=== PATIENT | male | born 1985 | race Two or more races ===

== ENCOUNTER 2018-03-30 09:00 | Emergency (ER) | payer MEDICAID ==
[~2018-03-30] VITALS: Ht 167.6 cm; Wt 65.8 kg
[2018-03-30 09:00] VITALS: BP 137/70
== END 2018-03-30 09:47 | disposition home or self-care (01) ==
LOC: ER 09:03
DX: L02.612 Cutaneous abscess of left foot (principal); L03.032 Cellulitis of left toe; Z98.890 Other specified postprocedural states
CPT/HCPCS: 10060; 99283; A4606; Z7610

== ENCOUNTER 2018-07-29 21:21 | Emergency (ER) | payer MEDICAID ==
[~2018-07-29] VITALS: Ht 157.5 cm; Wt 50.8 kg
[2018-07-29] MEDS ORDERED: IBUPROFEN 600 MG TABLET PO ONE ×2 (22:00→22:09)
[2018-07-29 23:09] VITALS: BP 135/88
== END 2018-07-29 23:11 | disposition home or self-care (01) ==
LOC: ER 21:21
DX: L03.031 Cellulitis of right toe (principal); J06.9 Acute upper respiratory infection, unspecified; R00.0 Tachycardia, unspecified; Z98.890 Other specified postprocedural states
CPT/HCPCS: 10060; 99283; A6403

== ENCOUNTER 2019-03-01 08:17 | Emergency (ER) | payer MEDICAID ==
[~2019-03-01] VITALS: Ht 170.2 cm; Wt 74.8 kg
--- NOTE | 2019-03-01 08:42 | NUR ---
Patient came in to the ER c/o puncture wound to right foot from nail 1 week ago. On room air, breathing evenly and unlabored. kept comfortable, will continue to monitor accordingly.
[2019-03-01 09:00] VITALS: BP 134/84
--- NOTE | 2019-03-01 09:01 | NUR ---
Patient discharged to home in stable condition. Written and verbal after care instructions given. Patient verbalizes understanding of instruction.
== END 2019-03-01 09:00 | disposition home or self-care (01) ==
LOC: ER 08:17
DX: L03.031 Cellulitis of right toe (principal); Z98.890 Other specified postprocedural states

== ENCOUNTER 2019-04-12 19:07 | Emergency (ER) | payer MEDICAID ==
[~2019-04-12] VITALS: Ht 170.2 cm; Wt 68.0 kg
--- NOTE | 2019-04-12 19:50 | NUR ---
PT AAOX4. AMBULAORY. C/O R ANKLE PAIN AND SWELLING S/P FALL 4 DAYS BANQUET SET UP PERSON.
[2019-04-12] MEDS ORDERED: HYDROCODONE/APAP 10/325MG 1 EA TABLET ONE (19:53)
[2019-04-12] MEDS ORDERED: ONDANSETRON 4 MG TAB.RAPDIS ONE (19:53)
[2019-04-12] MEDS ORDERED: ONDANSETRON 4 MG TAB.RAPDIS SL ONE (20:00)
[2019-04-12] MEDS ORDERED: HYDROCODONE/APAP 10/325MG 1 EA TABLET PO ONE (20:00)
--- NOTE | 2019-04-12 20:02 | NUR ---
XRAY AT BEDSIDE
--- NOTE | 2019-04-12 21:26 | NUR ---
EMT AT BEDSIDE
--- NOTE | 2019-04-12 22:21 | NUR ---
Patient discharged to home in stable condition. Written and verbal after care instructions given. Patient verbalizes understanding of instruction and RX. Ambulated with steady gait using crutches. Pt taught how to use crutches.
[2019-04-12 22:22] VITALS: BP 132/82
== END 2019-04-12 22:22 | disposition home or self-care (01) ==
LOC: ER 19:11
DX: S82.831A Other fracture of upper and lower end of right fibula, initial encounter for closed fracture (principal); Z98.890 Other specified postprocedural states; W01.0XXA Fall on same level from slipping, tripping and stumbling without subsequent striking against object, initial encounter; Y93.89 Activity, other specified; Y92.89 Other specified places as the place of occurrence of the external cause; Y99.8 Other external cause status
CPT/HCPCS: 29515; 73610; 73630; 99284; Q0162

== ENCOUNTER 2019-10-02 20:53 | Emergency (ER) | payer MEDICAID ==
[~2019-10-02] VITALS: Ht 165.1 cm; Wt 70.3 kg
[2019-10-02 21:01] VITALS: BP 154/113
--- NOTE | 2019-10-02 21:05 | NUR ---
PATIENT CAME TO ER BED 1 C/O LEFT MEDIAL KNEE PAIN SINCE ERLIER TODAY WHEN HE WENT HIKING. PATIENT STATES THAT HE JUMPED ON AN UNSTABLE ROCK AND JUMPED DOWN FROM IT. PATIENT DID NOT HEAR ANY POP OF THE KNEE FOLLOWING THE TWO EVENTS. PATIENT HAS FULL RANGE OF MOTION OF LEFT KNEE. NO ABNORMALITY NOTED. PATIENT IS AMBULATORY WITH A CANE. BREATHING EVENLY AND UNLABORED ON ROOM AIR.
--- NOTE | 2019-10-02 21:07 | NUR ---
LEANA VALE AT BEDSIDE FOR EVAL
[2019-10-02] MEDS ORDERED: NAPROXEN 250 MG TABLET ONE (21:13)
--- NOTE | 2019-10-02 21:23 | NUR ---
PATIENT PROVIDED CRUTCHES AND LEFT KNEE IMMOBILIZER
[2019-10-02] MEDS ORDERED: NAPROXEN 500 MG TABLET PO SCH (21:30)
--- NOTE | 2019-10-02 21:32 | NUR ---
Patient discharged to home in stable condition. Written and verbal after care instructions given. Patient verbalizes understanding of instruction.
== END 2019-10-02 21:33 | disposition home or self-care (01) ==
LOC: ER 20:53
DX: M25.562 Pain in left knee (principal); Z98.890 Other specified postprocedural states; W17.89XA Other fall from one level to another, initial encounter; Y93.01 Activity, walking, marching and hiking; Y92.89 Other specified places as the place of occurrence of the external cause; Y99.8 Other external cause status

== ENCOUNTER 2019-11-13 12:59 | Emergency (ER) | payer MEDICAID ==
[~2019-11-13] VITALS: Ht 165.1 cm; Wt 59.4 kg
[2019-11-13 13:05] VITALS: BP 150/97
== END 2019-11-13 13:47 | disposition home or self-care (01) ==
LOC: ER 13:03
DX: S91.101A Unspecified open wound of right great toe without damage to nail, initial encounter (principal); X58.XXXA Exposure to other specified factors, initial encounter; Y93.89 Activity, other specified; Y92.89 Other specified places as the place of occurrence of the external cause; Y99.8 Other external cause status

== ENCOUNTER 2020-01-12 18:07 | Emergency (ER) | payer MEDICAID ==
[~2020-01-12] VITALS: Ht 165.1 cm; Wt 61.2 kg
[2020-01-12 18:14] VITALS: BP 167/90
== END 2020-01-12 19:00 | disposition home or self-care (01) ==
LOC: ER 18:10
DX: S91.101A Unspecified open wound of right great toe without damage to nail, initial encounter (principal); L60.0 Ingrowing nail; Z98.890 Other specified postprocedural states; X58.XXXA Exposure to other specified factors, initial encounter; Y93.89 Activity, other specified; Y92.89 Other specified places as the place of occurrence of the external cause; Y99.8 Other external cause status

== ENCOUNTER 2020-05-30 20:23 | Emergency (ER) | payer MEDICAID ==
[~2020-05-30] VITALS: Ht 162.6 cm; Wt 69.9 kg
[2020-05-30] MEDS ORDERED: ACETAMINOPHEN ES 500 MG TABLET ONE (20:47)
[2020-05-30] MEDS ORDERED: ACETAMINOPHEN ES 500 MG TABLET PO ONE (21:00)
[2020-05-30] MEDS ORDERED: IV NS 0.9% 1,000 ML BAG IV ONE ×2 (21:00→22:00)
[2020-05-30] MEDS ORDERED: ONDANSETRON HCL/PF 4 MG/2 ML VIAL IVP ONE (21:00)
[2020-05-30 21:01] LABS: BASOPHILS # (AUTO) 0.1 /CMM (0.0-0.2); BASOPHILS % (AUTO) 0.4 % (0.0-2.0); EOSINOPHILS % (AUTO) 0.1 % (0.0-6.0); HEMATOCRIT 33 % (39-51); HEMOGLOBIN 11.2 g/dL (13.5-17.5); LYMPHOCYTES # (AUTO) 0.7 /CMM (0.8-4.8); LYMPHOCYTES % (AUTO) 3.3 % (20.0-44.0); MEAN CORPUSCULAR HGB CONC 34 g/dl (31.0-36.0); MEAN CORPUSCULAR VOLUME 81 fL (80-96); MONOCYTES # (AUTO) 1.4 /CMM (0.1-1.30); MONOCYTES % (AUTO) 6.9 % (2.0-12.0); NEUTROPHILS # (AUTO) 17.6 /CMM (1.8-8.9); NEUTROPHILS % (AUTO) 89.3 % (43.0-81.0); PLATELET COUNT (AUTO) 258 /CMM (150-450); RED BLOOD CELL COUNT(AUTO) 4.09 MIL/uL (4.5-6.0); WHITE BLOOD COUNT (AUTO) 19.7 K/uL (4.3-11.0)
--- NOTE | 2020-05-30 21:01 | NUR ---
BIBWIFE FROM HOME TO ER BED 6. AAOX4. NOT IN RESP DISTRESS, BREATHING EVEN AND UNLABORED. AMBULATORY. CAME IN FOR BODYACHE, FEVER, VOMMITING AND COUGH. PER PT, BODYACHE AND FEVER STARTED TODAY. VOMMITING HAS BEEN A WEEKS BUT WORST TODAY. ORAL TEMP WAS NOTED @ 100.3. HE HAVE DIABETIC FOOT ULCER ON HIS R GREAT TOE, NON DRAINING NOR BLEEDING. PT DENIES SOB, SATTING @ 98% ON RA. PROVIDER WAS AT THE BEDSIDE FOR EVAL. ORDERS RECEIVED, NOTED AND CARRIED OUT. IV LINE ESTABLISHED ON R AC 18G, BLOOD DRAWN AND GIVEN TO LPHLEB AT BEDSIDE. PT ON MONITOR
[2020-05-30 21:07] LABS: BILIRUBIN,URINE Negative (NEGATIVE); COLOR,URINE YELLOW (YELLOW); LEUKOCYTE ESTERASE ,URINE Negative (NEGATIVE); NITRITE, URINE Negative (NEGATIVE); PH,URINE 6.5 (5.0-8.0); PROTEIN,URINE >=300 mg/dl (NEGATIVE); UGLUCOSE 250 MG/DL mg/dL (NEGATIVE)
[2020-05-30 21:18] LABS: RBC,URINE 21-50 /HPF (0-2); WBC,URINE 0-2 /HPF (0-3)
[2020-05-30 21:18] LABS: ALBUMIN 3.2 g/dL (3.4-5.0); BILIRUBIN,DIRECT 0.2 mg/dL (0.0-0.2); CALCIUM, SERUM 8.5 mg/dL (8.5-10.1); CREATININE 1.3 mg/dL (0.6-1.3); POTASSIUM 4.2 mmol/L (3.5-5.1); TOTAL PROTEIN, SERUM 7.2 g/dL (6.4-8.2)
[2020-05-30 21:19] LABS: BACTERIA,URINE Rare /HPF (None Seen); SQUAMOUS EPITHELIAL CELL,UR 0-2 /HPF (None Seen)
[2020-05-30] MEDS ORDERED: ONDANSETRON HCL/PF 4 MG/2 ML VIAL ONE (21:36)
[2020-05-30] MEDS ORDERED: ACET-2605 PO (21:58)
[2020-05-30] MEDS ORDERED: ONDA4TAB5 PO (21:58)
[2020-05-30] MEDS ORDERED: AMOX-430 PO (21:58)
[2020-05-30] MEDS ORDERED: KETOROLAC TROMETHAMINE INJ 30 MG/ML VIAL IV ONE (22:00)
[2020-05-30] MEDS ORDERED: AMOX/CLAVULANATE 875 MG TABLET PO ONE (22:00)
[2020-05-30] MEDS ORDERED: AMOX/CLAVULANATE 875 MG TABLET ONE (22:03)
[2020-05-30] MEDS ORDERED: KETOROLAC TROMETHAMINE 15 MG/ML VIAL ONE (22:03)
--- NOTE | 2020-05-30 22:18 | NUR ---
maria l aware temp of 100.1. toradol 30mg iv given
--- NOTE | 2020-05-30 22:42 | NUR ---
Patient discharged to home in stable condition. Written and verbal after care instructions given. Patient verbalizes understanding of instruction.IV removed. Catheter intact and site benign. Pressure and 4x4 applied to site. No bleeding noted. Pt ambulatory with a steady gait. Pt was instructed to come back tomorrow for a blood draw
[2020-05-30 22:43] VITALS: BP 162/98
== END 2020-05-30 22:43 | disposition home or self-care (01) ==
LOC: ER 20:23
DX: J06.9 Acute upper respiratory infection, unspecified (principal); R50.9 Fever, unspecified; Z20.822 Contact with and (suspected) exposure to COVID-19; E11.65 Type 2 diabetes mellitus with hyperglycemia; E11.621 Type 2 diabetes mellitus with foot ulcer; L97.519 Non-pressure chronic ulcer of other part of right foot with unspecified severity; R03.0 Elevated blood-pressure reading, without diagnosis of hypertension; D64.9 Anemia, unspecified
CPT/HCPCS: 36415; 71045; 80048; 80076; 81001; 83605; 83690; 85025; 87040 ×2; 87077 ×2; 87186; 87426; 87804; 96361; 96374; 96375; 99284; C9803 ×2; J1885; J2405; J7030 ×2; U0003

== ENCOUNTER 2020-05-31 17:21 | Emergency (ER) | payer MEDICAID ==
[~2020-05-31] VITALS: Ht 162.6 cm; Wt 72.1 kg
[~2020-05-31 17:21] MED LIST: ACET-2605 PO; AMOX-430 PO; ONDA4TAB5 PO
[2020-05-31 17:36] VITALS: BP 133/82
[2020-05-31 17:59] LABS: BASOPHILS # (AUTO) 0.1 /CMM (0.0-0.2); BASOPHILS % (AUTO) 0.7 % (0.0-2.0); EOSINOPHILS % (AUTO) 0.9 % (0.0-6.0); HEMATOCRIT 33 % (39-51); HEMOGLOBIN 11.4 g/dL (13.5-17.5); LYMPHOCYTES # (AUTO) 1.1 /CMM (0.8-4.8); LYMPHOCYTES % (AUTO) 10.6 % (20.0-44.0); MEAN CORPUSCULAR HGB CONC 35 g/dl (31.0-36.0); MEAN CORPUSCULAR VOLUME 81 fL (80-96); MONOCYTES % (AUTO) 9.9 % (2.0-12.0); NEUTROPHILS # (AUTO) 7.7 /CMM (1.8-8.9); NEUTROPHILS % (AUTO) 77.9 % (43.0-81.0); PLATELET COUNT (AUTO) 224 /CMM (150-450); RED BLOOD CELL COUNT(AUTO) 4.07 MIL/uL (4.5-6.0)
[2020-05-31 18:14] LABS: CALCIUM, SERUM 7.9 mg/dL (8.5-10.1); CREATININE 1.1 mg/dL (0.6-1.3); POTASSIUM 4.4 mmol/L (3.5-5.1)
--- NOTE | 2020-05-31 18:27 | NUR ---
Patient discharged to home in stable condition. Written and verbal after care instructions given. Patient verbalizes understanding of instruction.
== END 2020-05-31 18:28 | disposition home or self-care (01) ==
LOC: ER 17:23
DX: J06.9 Acute upper respiratory infection, unspecified (principal); E11.9 Type 2 diabetes mellitus without complications; D64.9 Anemia, unspecified; I10 Essential (primary) hypertension; R11.2 Nausea with vomiting, unspecified; F10.10 Alcohol abuse, uncomplicated; Y90.9 Presence of alcohol in blood, level not specified; Z98.890 Other specified postprocedural states; Z79.899 Other long term (current) drug therapy
CPT/HCPCS: 36415; 80048-TC; 85025-TC

== ENCOUNTER 2021-01-17 08:56 | Emergency (ER) | payer MEDICAID ==
[~2021-01-17] VITALS: Ht 162.6 cm; Wt 70.3 kg
--- NOTE | 2021-01-17 09:18 | NUR ---
PT CAME TO ER C/O BLURRED VISION IN THE OUTER CORNER OF THE R EYE SINCE LAST NIGHT. DENIES TRAUMA TO EYE, HEADACHE, N/V, FEVER. REPORTS THAT SAW COLORED DOTS IN VISUAL FIELD WHEN BENT DOWN TWICE. AAOX4, AMBULATORY, NO FOREIGN OBJECT, REDNESS, OR SWELLING SEEN IN EYE.
[2021-01-17] MEDS ORDERED: FLUORESCEIN SODIUM OPHTH 1 EA STRIP ONE (09:30)
[2021-01-17] MEDS ORDERED: TONO PEN in ED SUPPLY ONICELL 1 EA MC ONE (09:30)
[2021-01-17] MEDS ORDERED: FLUORESCEIN SODIUM OPHTH 1 EA STRIP OP ONE (09:30)
--- NOTE | 2021-01-17 10:41 | NUR ---
Patient discharged to home in stable condition. Written and verbal after care instructions given. Patient verbalizes understanding of instruction.
[2021-01-17 10:46] VITALS: BP 148/102
== END 2021-01-17 10:40 | disposition left against medical advice (07) ==
LOC: ER 09:04
DX: H33.21 Serous retinal detachment, right eye (principal); E11.9 Type 2 diabetes mellitus without complications; Z98.890 Other specified postprocedural states

== ENCOUNTER 2021-05-20 08:57 | Emergency (ER) | payer MEDICAID ==
[~2021-05-20] VITALS: Ht 157.5 cm; Wt 70.8 kg
[2021-05-20 09:04] VITALS: BP 166/103
--- NOTE | 2021-05-20 09:10 | NUR ---
HIT WITH WIT "WOOD " AT WORK 4 DAYS AGO, C/O LEFT SIDE OF FOREHEAD SWOLLEN. WAITNG FOR MD SARAH.
== END 2021-05-20 09:29 | disposition home or self-care (01) ==
LOC: ER 09:01
DX: S00.83XA Contusion of other part of head, initial encounter (principal); E11.9 Type 2 diabetes mellitus without complications; Z87.2 Personal history of diseases of the skin and subcutaneous tissue; Z86.31 Personal history of diabetic foot ulcer; Z79.1 Long term (current) use of non-steroidal anti-inflammatories (NSAID); Z79.899 Other long term (current) drug therapy; W22.8XXA Striking against or struck by other objects, initial encounter; Y93.89 Activity, other specified; Y92.89 Other specified places as the place of occurrence of the external cause; Y99.8 Other external cause status

== ENCOUNTER 2021-05-27 18:46 | Inpatient (IN) | payer MEDICAID ==
[~2021-05-27] VITALS: Ht 160 cm; Wt 72.1 kg
--- NOTE | 2021-05-27 21:09 | NUR ---
XRAY AT BEDSIDE.
--- NOTE | 2021-05-27 21:09 | NUR ---
LAB AT BEDSIDE FOR BLOOD DRAW.
[2021-05-27] MEDS ORDERED: CEPHALEXIN MONOHYDRATE 500 MG CAPSULE PO ONE ×2 (21:15→21:30)
[2021-05-27] MEDS ORDERED: SULFAMETH/TRIMETH 800/160 MG 1 UDTAB TABLET ONE (21:15)
[2021-05-27] MEDS ORDERED: SULFAMETH/TRIMETH 800/160 MG 1 UDTAB TABLET PO ONE (21:30)
[2021-05-27 21:43] LABS: BASOPHILS # (AUTO) 0.1 K/uL (0.0-0.2); BASOPHILS % (AUTO) 0.5 % (0.0-2.0); EOSINOPHILS % (AUTO) 1.8 % (0.0-6.0); HEMATOCRIT 29 % (39-51); HEMOGLOBIN 9.7 g/dL (13.5-17.5); LYMPHOCYTES # (AUTO) 1.7 K/uL (0.8-4.8); LYMPHOCYTES % (AUTO) 12.2 % (20.0-44.0); MEAN CORPUSCULAR HGB CONC 34 g/dl (31.0-36.0); MEAN CORPUSCULAR VOLUME 81 fL (80-96); MONOCYTES % (AUTO) 7.6 % (2.0-12.0); NEUTROPHILS # (AUTO) 10.7 K/uL (1.8-8.9); NEUTROPHILS % (AUTO) 77.9 % (43.0-81.0); PLATELET COUNT (AUTO) 365 K/uL (150-450); RED BLOOD CELL COUNT(AUTO) 3.54 MIL/uL (4.5-6.0); WHITE BLOOD COUNT (AUTO) 13.7 K/uL (4.3-11.0)
[2021-05-27 22:00] LABS: CALCIUM, SERUM 8.6 mg/dL (8.5-10.1); CREATININE 1.8 mg/dL (0.6-1.3); POTASSIUM 3.9 mmol/L (3.5-5.1)
--- NOTE | 2021-05-27 22:30 | NUR ---
ASSUMED PT CARE, PT BIBS TO ER BED 9 FROM CHAIR 1. AAOX4. NOT IN RESP DISTRESS. AMBULATORY. CAME IN FOR R FOOT 3RD DIGIT. PAIN AND SWELLING X 1.5 WEEKS. MD ORDERS RECEIVED.
[2021-05-27] MEDS ORDERED: VANCOMYCIN 1 GM VIAL ONE (22:53)
[2021-05-27] MEDS ORDERED: PIPERACILLIN /TAZOBACTAM 3.375 G VIAL IV ONE (22:53)
[2021-05-27] MEDS ORDERED: IV NS 0.9% 1,000 ML BAG IV ONE (23:00)
[2021-05-27] MEDS ORDERED: CEFAZOLIN 2 GM in IV D5W 100 ML IV ONE (23:00)
[2021-05-27] MEDS ORDERED: VANCOMYCIN 1 GM in IV D5W 250 ML IV ONE (23:00)
[2021-05-27] MEDS ORDERED: PIPERACILLIN /TAZOBACTAM 3.375 G in IV D5W 50 ML IV ONE (23:00)
[2021-05-27] MEDS ORDERED: DEXTROSE 50%-WATER 50 ML DISP.SYRIN IV PRN (23:30)
[2021-05-27] MEDS ORDERED: HYDROCODONE/APAP 5/325MG TABLET PO PRN (23:30)
[2021-05-27] MEDS ORDERED: ACETAMINOPHEN 325 MG TABLET PO PRN (23:30)
--- NOTE | 2021-05-27 23:47 | NUR ---
COVID SWAB DONE AND SENT TO LAB
--- NOTE | 2021-05-27 23:57 | NUR ---
FOLLOWED UP WITH LAB REGARDING COVID SWAB. STILL NOT PICKED UP BY PHLEB. SPECIMENT COLLECTED ALREADY.
--- NOTE | 2021-05-28 01:51 | NUR ---
called to report, nurse on break
--- NOTE | 2021-05-28 02:01 | NUR ---
report given to [facility] for kathy
--- NOTE | 2021-05-28 02:16 | NUR ---
pt transported to unit on gurney with emt at bedside on stable condition
[2021-05-28] MEDS: ONDANSETRON HCL/PF 4 MG/2 ML VIAL IVP PRN (02:48)
[2021-05-28] MEDS: IV NS 0.9% 1,000 ML IV PRN ×2 (03:05→21:33)
--- NOTE | 2021-05-28 03:27 | NUR ---
MS ROOM COOLER INSTALLER NOTE PATENT BROUGHT IN UNIT @0211 AM VIA [facility] ACCOMPANIED BY 2 ER PERSONNEL. PATIENT IS A/OX4 AND IS STEADY WITH HIS GAIT. NO S/S OF APPARENT DISTRESS O ROOM AIR, AND BREATHING IS SYMMETRICAL AND UNLABORED. DENIES PAIN BUT C/O NAUSEA, X1 EMESIS WHICH HAS BEEN MANAGED WITH ZOFRAN. R. FA #18 G RUNNING NS @75CC/HR AT THIS TIME. PATIENT THINGS CHECKED AND INVENTORIED. NEW ID BAND ON PATIENT. PATIENT EDUCATED WITH THE USE OF CALL LIGHT AND ORIENTED TO THE UNIT. PATIENT WISHES TO BE FULL CODE AT THIS TIME. UP TO DATE WITH HIS VACCINATIONS-- FLU AND COVID. PATIENT DENIES SMOKING AND DRINKING ALCOHOL, SAYING HE QUIT YEARS AGO. SAFETY IN PLACE. V/S FOLLOWS:139/85, HR-90, RR-20, T-98.1, SATURATION 99% ON ROOM AIR AND WEIGHS 159 LBS. NEEDS ATTENDED AT THE MOMENT. WILL CONTINUE WITH PLAN OF CARE FOR PATIENT AND FOLLOW THROUGH DOCTOR'S ORDER.
[2021-05-28] MEDS ORDERED: ZOSYN IVPB 3.375 G in IV D5W 50ml IV SCH (05:00)
[2021-05-28] MEDS ORDERED: PIPERACILLIN /TAZOBACTAM 3.375 G VIAL IV ONE (05:25)
[2021-05-28] MEDS: BLOOD SUGAR DIAGNOSTIC 1 EACH STRIP IN SCH ×4 (06:45→21:45)
[2021-05-28] MEDS: INSULIN REGULAR, HUMAN 100 UNIT/ML 3 ML VIAL SQ PRN (06:45)
--- NOTE | 2021-05-28 06:46 | NUR ---
MS RN NOTE BLOOD SUGAR 97. NO COVERAGE NEEDED.
--- NOTE | 2021-05-28 06:53 | NUR ---
MS RN CLOSING PATIENT IN BED, WITH EYES CLOSED EASY TO AROUSE. NO S/S OF APPARENT DISTRESS IN ROOM AIR. DENIES ANY PAIN AND NAUSEA RELIEVED PER PATIENT AND GETS BACK WHEN HE AMBULATES. ALL NEEDS ATTENDED. ALL SCHEDULED MEDICATION ADMINISTERED. SAFETY IN PLACE. IV NS RUNNING @75 ML/HR. WILL ENDORSE TO MORNING RN FOR CONTINUITY OF CARE.
--- NOTE | 2021-05-28 07:17 | NUR ---
WOUND CARE CONSULT: PT PRESENTS WITH NAIL AVULSION, DRY WOUNDS TO RT FOOT/TOES AND DISCOLORATION, PRESENT ON ADMISSION. DR LEIJA NOTIFIED OF DPM CONSULT. IN AGREEMENT WITH PLAN OF CARE. CURRENT KAUSHIK SCORE IS 21.
[2021-05-28 07:30] LABS: BASOPHILS # (AUTO) 0.1 K/uL (0.0-0.2); BASOPHILS % (AUTO) 0.8 % (0.0-2.0); EOSINOPHILS % (AUTO) 2.1 % (0.0-6.0); HEMATOCRIT 26 % (39-51); LYMPHOCYTES # (AUTO) 1.6 K/uL (0.8-4.8); LYMPHOCYTES % (AUTO) 15.3 % (20.0-44.0); MEAN CORPUSCULAR HGB CONC 34 g/dl (31.0-36.0); MEAN CORPUSCULAR VOLUME 80 fL (80-96); MONOCYTES # (AUTO) 0.8 K/uL (0.1-1.30); MONOCYTES % (AUTO) 7.7 % (2.0-12.0); NEUTROPHILS # (AUTO) 7.9 K/uL (1.8-8.9); NEUTROPHILS % (AUTO) 74.1 % (43.0-81.0); PLATELET COUNT (AUTO) 329 K/uL (150-450); RED BLOOD CELL COUNT(AUTO) 3.26 MIL/uL (4.5-6.0); WHITE BLOOD COUNT (AUTO) 10.7 K/uL (4.3-11.0)
--- NOTE | 2021-05-28 07:30 | NUR ---
MS RN OPENING NOTES RECEIVED PATIENT ON BED, AWAKE AND A/O X4, TAJIK SPEAKING. ON O2 AT 2LPM VIA NASAL CANNULA TOLERATING WELL. NO SOB NOTED. NOT IN DISTRESS. WITH NO COMPLAINTS OF PAIN OR DISCOMFORT AT THIS TIME. WITH IV ACCESS AT LEFT FOREARM G18 WITH IVF NS AT 75ML/HR INFUSING WELL. SAFETY MEASURES IN PLACED. CALL LIGHT WITHIN REACH. BED ON LOWEST LOCKED POSITION, SIDE RAILS UP X2. WILL CONTINUE TO MONITOR.
[2021-05-28 08:12] VITALS: BP 148/89
[2021-05-28 08:51] LABS: CALCIUM, SERUM 8.2 mg/dL (8.5-10.1); CREATININE 1.6 mg/dL (0.6-1.3); MAGNESIUM 2.1 mg/dL (1.8-2.4); PHOSPHORUS 3.9 mg/dL (2.5-4.9); POTASSIUM 4.2 mmol/L (3.5-5.1)
[2021-05-28] MEDS: HEPARIN SODIUM, PORCINE 5000 UNITS/1 ML VIAL SQ SCH ×2 (09:20→21:34)
[2021-05-28] MEDS ORDERED: [UNRECOGNIZED DRUG - REMARK] PO (09:40)
[2021-05-28] MEDS ORDERED: METF-440 PO (09:40)
--- NOTE | 2021-05-28 12:00 | NUR ---
RN NOTE BLOOD SUGAR CHECK WAS 135. PATIENT REFUSED INSULIN COVERAGE.
[2021-05-28] MEDS: ZOSYN IVPB 3.375 G in IV D5W 50ml IV SCH ×3 (12:11→23:27)
[2021-05-28] MEDS: VANCOMYCIN 1 GM in IV D5W 250ml IV SCH (13:18)
[2021-05-28 16:10] VITALS: BP 168/99
--- NOTE | 2021-05-28 18:48 | NUR ---
MS RN CLOSING NOTES PATIENT ON BED, AWAKE AND A/O X4. ON ROOM AIR TOLERATING WELL. NO SOB NOTED. NOT IN DISTRESS. WITH NO COMPLAINTS OF PAIN OR DISCOMFORT AT THIS TIME. WITH IV ACCESS AT LEFT FOREARM G20 WITH IVF NS AT 75ML/HR INFUSING WELL. DUE MEDS GIVEN.SAFETY MEASURES IN PLACED. CALL LIGHT WITHIN REACH. BED ON LOWEST LOCKED POSITION, SIDE RAILS UP X2. WILL ENDORSE TO NEXT SHIFT FOR BETH.
--- NOTE | 2021-05-28 19:15 | NUR ---
MS RN OPENING NOTES PATIENT ON BED, AWAKE AND A/O X4. ON ROOM AIR TOLERATING WELL. NO SOB NOTED. NOT IN DISTRESS. WITH NO COMPLAINTS OF PAIN OR DISCOMFORT AT THIS TIME. WITH IV ACCESS AT LEFT FOREARM G20 WITH IVF NS AT 75ML/HR INFUSING WELL ALL NEEDS MET AT THIS TIME.SAFETY MEASURES IN PLACED. CALL LIGHT WITHIN REACH. BED ON LOWEST LOCKED POSITION, SIDE RAILS UP X2. WILL CONTINUE TO MONITOR.
[2021-05-28 20:00] VITALS: BP 151/88
--- NOTE | 2021-05-28 21:26 | NUR ---
MS RN NOTES TRANSFER OF CARE TO MARY DOTSON.
--- NOTE | 2021-05-28 22:26 | NUR ---
Received BETH report from MARY Machuca. Patient is awake, alert and in no signs of distress. Able to make needs known. NS running at 75ml/hr IV flushed and patent.
[2021-05-29] MEDS: VANCOMYCIN 1 GM in IV D5W 250ml IV SCH (01:00)
[2021-05-29] MEDS: ZOSYN IVPB 3.375 G in IV D5W 50ml IV SCH (05:26)
--- NOTE | 2021-05-29 06:37 | NUR ---
Patient has been stable overnight. alert and oriented. Able to make needs known. Tolerating IV ABX well. No s/s of hypo or hyperglycemia noted. MRI foot did come back as compatible with osteomyelitis of 3rd toe. ID is following, will endorse to oncoming nurse as well. Already on vanco and zosyn routine at this time. RFA #18G intact and patent. Currently resting in bed though easy to wake. No signs of distress.
[2021-05-29] MEDS: BLOOD SUGAR DIAGNOSTIC 1 EACH STRIP IN SCH ×4 (06:44→22:06)
[2021-05-29 06:50] LABS: BASOPHILS # (AUTO) 0.1 K/uL (0.0-0.2); BASOPHILS % (AUTO) 1.1 % (0.0-2.0); EOSINOPHILS % (AUTO) 3.7 % (0.0-6.0); HEMATOCRIT 27 % (39-51); HEMOGLOBIN 9.3 g/dL (13.5-17.5); LYMPHOCYTES # (AUTO) 1.5 K/uL (0.8-4.8); LYMPHOCYTES % (AUTO) 22.8 % (20.0-44.0); MEAN CORPUSCULAR HGB CONC 35 g/dl (31.0-36.0); MEAN CORPUSCULAR VOLUME 80 fL (80-96); MONOCYTES # (AUTO) 0.5 K/uL (0.1-1.30); MONOCYTES % (AUTO) 8.1 % (2.0-12.0); NEUTROPHILS # (AUTO) 4.3 K/uL (1.8-8.9); NEUTROPHILS % (AUTO) 64.3 % (43.0-81.0); PLATELET COUNT (AUTO) 329 K/uL (150-450); RED BLOOD CELL COUNT(AUTO) 3.37 MIL/uL (4.5-6.0); WHITE BLOOD COUNT (AUTO) 6.7 K/uL (4.3-11.0)
[2021-05-29 07:06] LABS: CALCIUM, SERUM 8.4 mg/dL (8.5-10.1); CREATININE 1.6 mg/dL (0.6-1.3); MAGNESIUM 2.4 mg/dL (1.8-2.4); PHOSPHORUS 3.9 mg/dL (2.5-4.9); POTASSIUM 4.1 mmol/L (3.5-5.1)
--- NOTE | 2021-05-29 07:30 | NUR ---
MS RN OPENING NOTES RECEIVED PATIENT AWAKE ON BED, PATIENT IS AAO X 4. ROOM AIR TOLERATING WELL. NO S/S OF SOB NOTED, NOT IN DISTRESS. NO PAIN AND DISCOMFORT AT THIS TIME. WITH IV ACCESS: RIGHT FORE ARM, 18G WITH NS @ 75 ML/HR: INFUSING WELL. SAFETY MEASURES IN PLACE, BED LOWEST LOCK IN POSITION, SIDE RAILS UP BY 2. CALL LIGHT WITH IN REACH. WILL CONTINUE TO MONITOR.
[2021-05-29 08:00] VITALS: BP 152/89
[2021-05-29] MEDS: HEPARIN SODIUM, PORCINE 5000 UNITS/1 ML VIAL SQ SCH ×2 (08:22→21:57)
[2021-05-29] MEDS ORDERED: BENA10TA74 PO (11:47)
[2021-05-29] MEDS ORDERED: GLIP5TAB13 PO (11:47)
[2021-05-29] MEDS: CEFTRIAXONE 1 G in IV D5W 50 ML IV SCH (13:21)
[2021-05-29 16:04] VITALS: BP 133/86
[2021-05-29] MEDS: BENAZEPRIL HCL 10 MG TABLET PO SCH (16:47)
[2021-05-29] MEDS: IV NS 0.9% 1,000 ML IV PRN (17:25)
[2021-05-29 20:00] VITALS: BP 147/90
--- NOTE | 2021-05-29 21:40 | NUR ---
called lab about vanco trough. Steel Estimator just now showed up to draw 2000 vanco trough. Will administer if results come back <20
[2021-05-29] MEDS: VANCOMYCIN 0.75 GM in IV D5W 250 ML IV SCH (22:53)
--- NOTE | 2021-05-29 22:53 | NUR ---
vanco trough just came back at 14 2100 dose given now
[2021-05-30] MEDS: IV NS 0.9% 1,000 ML IV PRN (06:10)
--- NOTE | 2021-05-30 06:19 | NUR ---
Patient is A&Ox4. Denies pain at this time. Dressing to R foot c/d/i. RFA #18G IV intact and patent NS running at 75cc/hr. Patient is leaning toward not doing an amputation but needs more time to think. If decided against will pass on to next RN to cancel for thursday. No overnight events, tolerating IV ABX well. No s/s of hypo or hyperglycemia. Currently wake and resting in bed with no signs of distress.
[2021-05-30] MEDS: BLOOD SUGAR DIAGNOSTIC 1 EACH STRIP IN SCH ×4 (06:32→21:51)
[2021-05-30 06:40] LABS: BASOPHILS # (AUTO) 0.1 K/uL (0.0-0.2); BASOPHILS % (AUTO) 1.2 % (0.0-2.0); EOSINOPHILS % (AUTO) 3.6 % (0.0-6.0); HEMATOCRIT 27 % (39-51); HEMOGLOBIN 9.3 g/dL (13.5-17.5); LYMPHOCYTES % (AUTO) 28.8 % (20.0-44.0); MEAN CORPUSCULAR HGB CONC 35 g/dl (31.0-36.0); MEAN CORPUSCULAR VOLUME 80 fL (80-96); MONOCYTES # (AUTO) 0.6 K/uL (0.1-1.30); MONOCYTES % (AUTO) 9.3 % (2.0-12.0); NEUTROPHILS % (AUTO) 57.1 % (43.0-81.0); PLATELET COUNT (AUTO) 360 K/uL (150-450); RED BLOOD CELL COUNT(AUTO) 3.34 MIL/uL (4.5-6.0)
[2021-05-30 06:44] LABS: CALCIUM, SERUM 8.4 mg/dL (8.5-10.1); CREATININE 1.5 mg/dL (0.6-1.3); PHOSPHORUS 4.4 mg/dL (2.5-4.9); POTASSIUM 4.2 mmol/L (3.5-5.1)
--- NOTE | 2021-05-30 07:35 | NUR ---
RN NOTES A/O X4, VERBALLY RESPONSIVE AND ABLE TO MAKE NEEDS KNOWN. NO COMPLAINT OF PAIN AT THIS TIME. IVF CONTINUOUS. SAFETY MEASURES IN PLACE. WILL CONTINUE TO MONITOR.
[2021-05-30 08:00] VITALS: BP 183/98
[2021-05-30] MEDS: BENAZEPRIL HCL 10 MG TABLET PO SCH ×2 (08:42→16:55)
[2021-05-30] MEDS: glipiZIDE 5 MG TABLET PO SCH (08:42)
[2021-05-30] MEDS: VANCOMYCIN 0.75 GM in IV D5W 250 ML IV SCH (08:43)
[2021-05-30] MEDS: HEPARIN SODIUM, PORCINE 5000 UNITS/1 ML VIAL SQ SCH ×2 (08:47→21:00)
--- NOTE | 2021-05-30 10:06 | NUR ---
RN NOTES PATIENT SEEN BY CAROL DUMONT NP; MADE AWARE OF PLAN OF CARE.
--- NOTE | 2021-05-30 12:20 | NUR ---
RN NOTES DR. LEIJA, SHAKE FEEDER, SEEN PATIENT AT BEDSIDE; AGREED FOR PROCEDURE AMPUTATION OF 3RD DIGIT.
[2021-05-30] MEDS: CEFTRIAXONE 1 G in IV D5W 50 ML IV SCH (13:23)
--- NOTE | 2021-05-30 13:57 | NUR ---
RN NOTES CONSENT FORM SIGNED BY PATIENT AND PLACED IN CHART.
--- NOTE | 2021-05-30 18:19 | NUR ---
RN NOTES PATIENT NPO POST MIDNIGHT FOR SCHEDULED SURGERY FOR TOMORROW. ABLE TO AMBULATE W/ MIN ASSIST TO BATHROOM. IVF PAUSED AT THIS TIME PATIENT IS AMBULATORY AND EATS/DRINKS WELL. NO COMPLAINT OF NAUSEA/VOMITING.
--- NOTE | 2021-05-30 19:30 | NUR ---
RN OPENING NOTE PATIENT IN BED, WITH AT BEDSIDE. PATIENT IS ABLE TO MAKE NEEDS KNOWN, A/O X 4. PATIENT IS CURRENTLY ON RA, TOLERATING WELL. PATIENT HAS A RFA 18 G PATENT AND INTACT, IV FLUID OFF AT THIS TIME PER PATIENT REQUEST. PATIENT TO BE NPO AFTER MIDNIGHT FOR SX. DRESSING PRESENT ON THE R FOOT, WILL REINFORCE. MILD BLEEDING NOTED. PATIENT NOT IN ANY APPARENT DISTRESS. SAFETY MEASURES IN PLACE: BED LOCKED AND IN LOWEST POSITION, CALL LIGHT WITHIN REACH, SIDE RAILS UP. WILL MONITOR PATIENT CLOSELY.
[2021-05-30 20:00] VITALS: BP 139/85
[2021-05-30] MEDS: INSULIN REGULAR, HUMAN 100 UNIT/ML 3 ML VIAL SQ PRN (21:51)
--- NOTE | 2021-05-30 21:51 | NUR ---
RN NOTE HEPRIN NON ADMINISTERED D/T SX IN AM. INSULIN NON ADMIN, BS 94 MG/DL. SNACKS AND JUICE GIVEN. PATIENT TO BE NPO AFTER MN.
--- NOTE | 2021-05-31 04:30 | NUR ---
RN NOTE PATIENT REPORTS FEELING NAUSEOUS, OFFERED ANTIEMETIC MEDICINE BUT REFUSES. EMESIS BAG PROVIDED. PATIENT NPO AT THIS TIME
--- NOTE | 2021-05-31 06:30 | NUR ---
RN CLOSING NOTE PATIENT IN BED, AWAKE. PATIENT IS ABLE TO MAKE NEEDS KNOWN, A/O X 4. PATIENT IS CURRENTLY ON RA, TOLERATING WELL. PATIENT HAS A RFA 18 G, INFILTRATED. WILL INSERT NEW IV ACCESS. DRESSING ON THE R FOOT C/D/I. NPO STATUS MAINTAINED FOR R THIRD TOE AMPUTATION WITH DR. MURPHY. PATIENT NOT IN ANY APPARENT DISTRESS. NO PAIN VERBALIZED BY PATIENT AT THIS TIME. SAFETY MEASURES IN PLACE: BED LOCKED AND IN LOWEST POSITION, CALL LIGHT WITHIN REACH, SIDE RAILS UP. WILL MONITOR PATIENT CLOSELY. Addendum: 05/31/21 at 0633 by GAYATRI WADE RN BS 119 NO COVERAGE GIVEN.
[2021-05-31] MEDS: BLOOD SUGAR DIAGNOSTIC 1 EACH STRIP IN SCH ×4 (06:34→21:15)
[2021-05-31] MEDS: INSULIN REGULAR, HUMAN 100 UNIT/ML 3 ML VIAL SQ PRN ×2 (06:34→21:16)
[2021-05-31] MEDS: ONDANSETRON HCL/PF 4 MG/2 ML VIAL IVP PRN ×2 (06:57→12:17)
--- NOTE | 2021-05-31 07:04 | NUR ---
NEW IV ACCESS INSERTED. LAC 18 G IV ACCESS, PATENT AND INTACT. ICE PACK APPLIED ON INFILTRATED SITE AND ELEVATED. Addendum: 05/31/21 at 0705 by GAYATRI WADE RN ZOFRAN GIVEN D/T PATIENT HAVING NAUSEA AND EMESIS
[2021-05-31 07:06] LABS: BASOPHILS # (AUTO) 0.1 K/uL (0.0-0.2); BASOPHILS % (AUTO) 1.2 % (0.0-2.0); EOSINOPHILS % (AUTO) 3.2 % (0.0-6.0); HEMATOCRIT 28 % (39-51); HEMOGLOBIN 9.8 g/dL (13.5-17.5); LYMPHOCYTES # (AUTO) 1.5 K/uL (0.8-4.8); MEAN CORPUSCULAR HGB CONC 35 g/dl (31.0-36.0); MEAN CORPUSCULAR VOLUME 80 fL (80-96); MONOCYTES # (AUTO) 0.6 K/uL (0.1-1.30); MONOCYTES % (AUTO) 6.6 % (2.0-12.0); NEUTROPHILS # (AUTO) 6.2 K/uL (1.8-8.9); PLATELET COUNT (AUTO) 396 K/uL (150-450); RED BLOOD CELL COUNT(AUTO) 3.53 MIL/uL (4.5-6.0); WHITE BLOOD COUNT (AUTO) 8.6 K/uL (4.3-11.0)
[2021-05-31 07:12] LABS: CALCIUM, SERUM 8.7 mg/dL (8.5-10.1); CREATININE 1.4 mg/dL (0.6-1.3); MAGNESIUM 2.4 mg/dL (1.8-2.4); PHOSPHORUS 4.5 mg/dL (2.5-4.9); POTASSIUM 4.6 mmol/L (3.5-5.1)
--- NOTE | 2021-05-31 07:46 | NUR ---
RN OPENING NOTES Patient seen comfortably lying in bed, breathing even and unlabored, no SOB, no apparent distress noted, denies any pain or discomfort at this time, no grimacing. Call light left within reach, safety precautions in place, brakes locked, side rails up X 2, will monitor closely for any changes.
[2021-05-31 09:03] LABS: BILIRUBIN,URINE NEGATIVE (NEGATIVE); COLOR,URINE YELLOW (YELLOW); LEUKOCYTE ESTERASE ,URINE NEGATIVE (NEGATIVE); NITRITE, URINE NEGATIVE (NEGATIVE); PROTEIN,URINE >=300 mg/dl (NEGATIVE); UGLUCOSE NEGATIVE (NEGATIVE); UROBILINOGEN,URINE 0.2 EU/dL (0.2)
[2021-05-31] MEDS ORDERED: LIDOCAINE 1% INJ 50 ML MDV IJ ONE (09:04)
[2021-05-31] MEDS ORDERED: BUPIVACAINE 0.5 % PF 150 MG/30 ML VIAL ONE (09:04)
[2021-05-31] MEDS ORDERED: ANESTHESIA TRAY IN PYXIS 1 EA TRAY MC ONE (09:04)
[2021-05-31] MEDS ORDERED: POLYMYXIN B SULFATE 0 UNITS ONE (09:04)
--- NOTE | 2021-05-31 09:30 | NUR ---
Patient left unit for procedure around 9:30am, stable condition, no apparent distress noted, remained NPO post midnight, no hypo/hyperglycemia noted, no change in level of consciousness, no tremors. Consents (signed by patient) and checklist filed in patient's chart. Patient not wearing any jewelry at this time.
[2021-05-31 09:43] LABS: BACTERIA,URINE None seen /HPF (None Seen); SQUAMOUS EPITHELIAL CELL,UR Rare /HPF (None Seen)
[2021-05-31] MEDS ORDERED: LABETALOL HCL IV 100MG VIAL ONE (11:03)
[2021-05-31] MEDS ORDERED: hydrALAZINE HCL IV 20 MG VIAL ONE (11:21)
--- NOTE | 2021-05-31 11:58 | NUR ---
Patient came back to unit form procedure (S/P right toe amputation), stable condition, no apparent distress noted, right foot covered with dry dressing wrapped in murali bandage, no visible signs and symptoms of bleeding, no drainage, no unusual odor noted, no s/s of circulation impairment noted at this time, skin warm to touch, no pallor or cyanosis noted, pulse present during shift, no swelling noted at this time. Orders noted and carried out by PACU nurse. Reminded patient to keep right lower extremity elevated, and to keep surgical shoe on and to inform nurse for any concerns, verbalized understanding and gratitude, call light left within reach.
[2021-05-31] MEDS: CEFTRIAXONE 1 G in IV D5W 50 ML IV SCH (12:17)
[2021-05-31] MEDS: glipiZIDE 5 MG TABLET PO SCH (12:18)
[2021-05-31] MEDS: HEPARIN SODIUM, PORCINE 5000 UNITS/1 ML VIAL SQ SCH ×2 (12:22→21:03)
[2021-05-31] MEDS: BENAZEPRIL HCL 10 MG TABLET PO SCH ×2 (12:23→16:07)
[2021-05-31] MEDS: IV NS 0.9% 1,000 ML IV PRN (16:22)
--- NOTE | 2021-05-31 18:24 | NUR ---
RN CLOSING NOTES Patient in bed, no apparent distress noted, no shortness of breath, breathing even and unlabored, remained afebrile, denies any pain or discomfort, no grimacing. All due medications given per MD order, tolerating well. No s/s of hypo or hyperglycemia, no tremors, no change in level of consciousness. Patient has an order for IV fluids (0.9 NS at 75ml/hr), infusing well on his IV peripheral line on his left antecubital, no s/s of infiltration, no redness, no swelling, no bleeding noted at this time. Patient S/P right toe amputation today, right lower extremity covered with clean, dry and intact dressings,no visible bleeding, no unusual smell, no drainage, no s/s of circulation impairment noted at this time, skin warm to touch, no pallor or cyanosis noted, pulse present during shift, no swelling noted at this time. All needs attended, kept clean and dry, safety precautions in place, brakes locked, side rails up X 2, call light left within reach, will endorse to next shift for continuity of care.
--- NOTE | 2021-05-31 19:37 | NUR ---
RN OPENING NOTES RECEIVED PT IN AWAKE, SPEAKING WITH FAMILY AT BEDSIDE. AOx4, ABLE TO MAKE NEEDS KNOWN. ON RA AND TOLERATING WELL. NO SOB NOTED. NO S/SX OF RESPIRATORY DISTRESS NOTED. IV ACCESS IN LAC #18 RUNNING NS @ 75 ML/HR. S/P R TOE AMPUTATION BY DR. LEIJA. SAFETY PRECAUTIONS IN PLACE: BED IN LOWEST, LOCKED POSITION, SIDERAILS UPx2, AND BRAKES ON. TABLE AND CALL LIGHT WITHIN REACH. WILL CONTINUE TO MONITOR.
[2021-05-31 20:00] VITALS: BP 156/94
--- NOTE | 2021-05-31 21:16 | NUR ---
BS IS 113 MG/DL HELD INSULIN BECAUSE IT IS WITHIN NORMAL LIMITS.
[2021-06-01] MEDS: ONDANSETRON HCL/PF 4 MG/2 ML VIAL IVP PRN (01:39)
[2021-06-01] MEDS: IV NS 0.9% 1,000 ML IV PRN (05:02)
[2021-06-01] MEDS: BLOOD SUGAR DIAGNOSTIC 1 EACH STRIP IN SCH ×2 (06:30→11:52)
[2021-06-01] MEDS: INSULIN REGULAR, HUMAN 100 UNIT/ML 3 ML VIAL SQ PRN (06:42)
--- NOTE | 2021-06-01 06:47 | NUR ---
RN CLOSING NOTES PT IN ASLEEP, AWAKENS TO VERBAL STIMULI. AOx4, ABLE TO MAKE NEEDS KNOWN. ON RA AND TOLERATING WELL. NO SOB NOTED. NO S/SX OF RESPIRATORY DISTRESS NOTED. IV ACCESS IN LAC #18 RUNNING NS @ 75 ML/HR. S/P R TOE AMPUTATION BY DR. LEIJA. ALL NEEDS MET. PT KEPT CLEAN AND DRY. NO COMPLAINTS OF PAIN.SAFETY PRECAUTIONS IN PLACE: BED IN LOWEST, LOCKED POSITION, SIDERAILS UPx2, AND BRAKES ON. TABLE AND CALL LIGHT WITHIN REACH. WILL ENDORSE TO ONCOMING SHIFT FOR BETH.
[2021-06-01 07:27] LABS: BASOPHILS # (AUTO) 0.1 K/uL (0.0-0.2); BASOPHILS % (AUTO) 0.9 % (0.0-2.0); EOSINOPHILS % (AUTO) 1.5 % (0.0-6.0); HEMATOCRIT 27 % (39-51); HEMOGLOBIN 9.1 g/dL (13.5-17.5); LYMPHOCYTES # (AUTO) 1.6 K/uL (0.8-4.8); LYMPHOCYTES % (AUTO) 19.3 % (20.0-44.0); MEAN CORPUSCULAR HGB CONC 34 g/dl (31.0-36.0); MEAN CORPUSCULAR VOLUME 80 fL (80-96); MONOCYTES # (AUTO) 0.5 K/uL (0.1-1.30); MONOCYTES % (AUTO) 6.2 % (2.0-12.0); NEUTROPHILS # (AUTO) 6.1 K/uL (1.8-8.9); NEUTROPHILS % (AUTO) 72.1 % (43.0-81.0); PLATELET COUNT (AUTO) 366 K/uL (150-450); RED BLOOD CELL COUNT(AUTO) 3.34 MIL/uL (4.5-6.0); WHITE BLOOD COUNT (AUTO) 8.4 K/uL (4.3-11.0)
--- NOTE | 2021-06-01 07:30 | NUR ---
MS RN OPENING NOTE RECEIVED PATIENT AWAKE IN BED. A/O X 4, ABLE TO MAKE NEEDS KNOWN. NO S/SX OF DISTRESS NOTED. NO SOB. NO C/O PAIN. BREATHING IS EVEN AND UNLABORED. PT TOLERATING WELL ON ROOM AIR. IV ACCESS LAC #18G PATENT AND INTACT WITH NS RUNNING AT 75MLS/HR. SAFETY MEASURES IN PLACE WITH BED LOCKED IN LOW POSITION. SIDE RAILS UP X2. CALL LIGHT IS WITHIN REACH. WILL CONTINUE TO MONITOR PATIENT THROUGHOUT SHIFT.
[2021-06-01 07:55] LABS: CALCIUM, SERUM 8.3 mg/dL (8.5-10.1); CREATININE 1.4 mg/dL (0.6-1.3); MAGNESIUM 2.2 mg/dL (1.8-2.4); PHOSPHORUS 4.7 mg/dL (2.5-4.9)
[2021-06-01 08:00] VITALS: BP 137/89
[2021-06-01] MEDS: HEPARIN SODIUM, PORCINE 5000 UNITS/1 ML VIAL SQ SCH (08:22)
[2021-06-01 08:23] VITALS: BP 140/72
[2021-06-01] MEDS: glipiZIDE 5 MG TABLET PO SCH (08:23)
[2021-06-01] MEDS: BENAZEPRIL HCL 10 MG TABLET PO SCH (08:23)
[2021-06-01] MEDS ORDERED: DOXY-226 PO (10:01)
--- NOTE | 2021-06-01 11:09 | NUR ---
RN NOTE PER DR. LEIJA, PT WAS SEEN YESTERDAY AND IS CLEARED FOR DISCHARGE FROM PODIATRY STANDPOINT. PT WILL CALL THURSDAY JUNE 10, 2021 DR. TOWNSEND OFFICE TO MAKE AN APPOINTMENT FOR May FOR FOLLOW-UP. ORDERS READ BACK AND CARRIED OUT.
--- NOTE | 2021-06-01 11:43 | NUR ---
RN NOTE BS 44. ADMINISTERED D50 PRN. PT STATES HE HAS NO S/SX OF HYOGLYCEMIA. WILL RETAKE BS. WILL CONTINUE TO MONITOR CLOSELY.
--- NOTE | 2021-06-01 12:20 | NUR ---
RN NOTE PT'S BS INCREASED TO 178 AFTER DEXTROSE 50 GIVEN. NO S/SX OF ACUTE DISTRESS NOTED. NO S/SX OF HYPO/HYPERGLYCEMIA NOTED.
[2021-06-01] MEDS: CEFTRIAXONE 1 G in IV D5W 50 ML IV SCH (12:27)
--- NOTE | 2021-06-01 13:45 | NUR ---
TOPOGRAPHY TECHNICIAN NOTE PT WAS DISCHARGED WITH STABLE VITAL SIGNS. DISCHARGE INSTRUCTIONS REVIEWED WITH PATIENT AND SIGNED. PT VERBALIZED UNDERSTANDING; ALL QUESTIONS ANSWERED. ID AND IV ACCESS REMOVED. ALL BELONGINGS RETURNED AND SIGNED FORM. PT WAS ACCOMPANIED OUT THE UNIT WITH , JARROD AND CHIO RODRIGUEZ.
== END 2021-06-01 16:00 | disposition home or self-care (01) | DRG 314 ==
LOC: ER 18:49 → MED 05-28 01:02
PROVIDERS: ADMIT Nurse Practitioner Acute Care; ATTEND Registered Nurse
PROC: 0Y6T0Z1 Detachment at Right 3rd Toe, High, Open Approach (ICD-10-PCS; principal; 2021-05-31)
DX: L03.031 Cellulitis of right toe (principal); E11.40 Type 2 diabetes mellitus with diabetic neuropathy, unspecified; N17.0 Acute kidney failure with tubular necrosis; M86.171 Other acute osteomyelitis, right ankle and foot; D68.59 Other primary thrombophilia; E87.1 Hypo-osmolality and hyponatremia; L97.519 Non-pressure chronic ulcer of other part of right foot with unspecified severity; B95.1 Streptococcus, group B, as the cause of diseases classified elsewhere; E11.621 Type 2 diabetes mellitus with foot ulcer; E11.69 Type 2 diabetes mellitus with other specified complication; E11.65 Type 2 diabetes mellitus with hyperglycemia; Z20.822 Contact with and (suspected) exposure to COVID-19; I10 Essential (primary) hypertension; Z98.890 Other specified postprocedural states; E66.9 Obesity, unspecified; R26.9 Unspecified abnormalities of gait and mobility; S92.321A Displaced fracture of second metatarsal bone, right foot, initial encounter for closed fracture; X58.XXXA Exposure to other specified factors, initial encounter; Y92.9 Unspecified place or not applicable; B95.61 Methicillin susceptible Staphylococcus aureus infection as the cause of diseases classified elsewhere
CPT/HCPCS: 36415; 73630-TC; 73718-TC; 80048-TC; 80061-TC; 80202-TC; 81001; 82962-TC; 83735-TC; 84100-TC; 85025-TC; 85610-TC; 85652-TC; 85730-TC; 86140-TC; 86850-TC; 87070-TC; 87075-TC; 87081-TC; 88305-TC; 88311-TC; A6403; C9803; G0378; J0360; J0690; J0696; J1644; J1815; J2405; J2543; J2704; J3370; J3490; J7030; J7060

== ENCOUNTER 2021-06-06 09:05 | Outpatient (CLI) | payer MEDICAID ==
[~2021-06-06 09:05] MED LIST changes: -ACET-2605 PO; -AMOX-430 PO; +BENA10TA74 PO; +DOXY-226 PO; +GLIP5TAB13 PO; +METF-440 PO; -ONDA4TAB5 PO
== END 2021-06-06 23:59 | disposition home or self-care (01) ==
LOC: WOU 09:05
PROVIDERS: ATTEND Podiatrist Foot & Ankle Surgery
DX: Z47.81 Encounter for orthopedic aftercare following surgical amputation (principal); E11.40 Type 2 diabetes mellitus with diabetic neuropathy, unspecified; Z79.84 Long term (current) use of oral hypoglycemic drugs; I10 Essential (primary) hypertension; Z89.421 Acquired absence of other right toe(s)
CPT/HCPCS: G0463

== ENCOUNTER 2021-06-20 09:50 | Outpatient (CLI) | payer MEDICAID | END 2021-06-20 23:59 | disposition home or self-care (01) | LOC: WOU 09:50 | PROVIDERS: ATTEND Podiatrist Foot & Ankle Surgery | DX: E11.621 Type 2 diabetes mellitus with foot ulcer (principal); L97.512 Non-pressure chronic ulcer of other part of right foot with fat layer exposed; E11.40 Type 2 diabetes mellitus with diabetic neuropathy, unspecified; Z89.421 Acquired absence of other right toe(s); Z79.84 Long term (current) use of oral hypoglycemic drugs | CPT/HCPCS: G0463 ==

== ENCOUNTER 2021-07-14 10:24 | Emergency (ER) | payer MEDICAID ==
[~2021-07-14] VITALS: Ht 162.6 cm; Wt 69.9 kg
[2021-07-14 10:46] VITALS: BP 155/91
[2021-07-14] MEDS ORDERED: CLIN300C12 PO (11:10)
== END 2021-07-14 11:32 | disposition home or self-care (01) ==
LOC: ER 10:34
DX: E11.621 Type 2 diabetes mellitus with foot ulcer (principal); L97.519 Non-pressure chronic ulcer of other part of right foot with unspecified severity; I10 Essential (primary) hypertension; Z98.890 Other specified postprocedural states; Z79.84 Long term (current) use of oral hypoglycemic drugs; Z79.899 Other long term (current) drug therapy

== ENCOUNTER 2021-08-28 16:49 | Emergency (ER) | payer MEDICAID ==
[~2021-08-28] VITALS: Ht 162.6 cm; Wt 69.9 kg
[~2021-08-28 16:49] MED LIST changes: +CLIN300C12 PO
[2021-08-28 17:49] VITALS: BP 149/90
[2021-08-28] MEDS ORDERED: SULF1TAB48 PO (19:03)
[2021-08-28] MEDS ORDERED: LIDOCAINE HCL/MPF 1% 30 ML VIAL IJ ONE (19:17)
[2021-08-28] MEDS ORDERED: BACI/NEOM/POLY B OINT PKT 1 UDPKT PACKET ONE (19:18)
[2021-08-28] MEDS ORDERED: IBUPROFEN 600 MG TABLET ONE (19:18)
[2021-08-28] MEDS ORDERED: TDAP [DIPH/PERTUSSIS/TET] 0.5 ML VIAL IM ONE (19:18)
[2021-08-28] MEDS: BACI/NEOM/POLY B OINT PKT 1 UDPKT PACKET TP ONE (19:22)
[2021-08-28] MEDS: IBUPROFEN 600 MG TABLET PO ONE (19:23)
[2021-08-28] MEDS: TDAP [DIPH/PERTUSSIS/TET] 0.5 ML VIAL IM ONE (19:23)
[2021-08-28] MEDS: LIDOCAINE HCL/PF 1% 30 ML VIAL TP ONE (19:24)
== END 2021-08-28 19:24 | disposition home or self-care (01) ==
LOC: ER 16:52
DX: S61.213A Laceration without foreign body of left middle finger without damage to nail, initial encounter (principal); S61.211A Laceration without foreign body of left index finger without damage to nail, initial encounter; I10 Essential (primary) hypertension; E11.9 Type 2 diabetes mellitus without complications; Z79.899 Other long term (current) drug therapy; W27.0XXA Contact with workbench tool, initial encounter; Y93.89 Activity, other specified; Y92.89 Other specified places as the place of occurrence of the external cause; Y99.8 Other external cause status
CPT/HCPCS: 73130; 90471; 90715; 99283; J3490 ×2

== ENCOUNTER 2023-05-31 10:58 | Emergency (ER) | payer MEDICAID, OTHER ==
[~2023-05-31] VITALS: Ht 162.6 cm; Wt 70.8 kg
[~2023-05-31 10:58] MED LIST changes: +SULF1TAB48 PO
[2023-05-31 11:08] VITALS: BP 133/98; TEMP 98.2
[2023-05-31] MEDS ORDERED: TRAM50TA2 PO (12:05)
[2023-05-31 12:18] VITALS: O2SAT 100
== END 2023-05-31 12:19 | disposition home or self-care (01) ==
LOC: ER 11:04
DX: S92.002A Unspecified fracture of left calcaneus, initial encounter for closed fracture (principal); W18.30XA Fall on same level, unspecified, initial encounter; Y93.39 Activity, other involving climbing, rappelling and jumping off; Y92.89 Other specified places as the place of occurrence of the external cause; Y99.8 Other external cause status; I10 Essential (primary) hypertension; E11.9 Type 2 diabetes mellitus without complications
CPT/HCPCS: 73610-TC; 73630-TC

== ENCOUNTER 2024-06-06 16:45 | Emergency (ER) | payer OTHER ==
[~2024-06-06] VITALS: Ht 162.6 cm; Wt 79.4 kg
[~2024-06-06 16:45] MED LIST changes: +TRAM50TA2 PO
[2024-06-06 16:56] VITALS: BP 163/83; TEMP 98.3
[2024-06-06] MEDS ORDERED: CIPR7.5D9 EACH EAR (17:22)
[2024-06-06] MEDS ORDERED: AMOX-430 PO (17:23)
[2024-06-06 18:23] VITALS: O2SAT 100
== END 2024-06-06 18:23 | disposition home or self-care (01) ==
LOC: ER 16:53
DX: H60.91 Unspecified otitis externa, right ear (principal); I10 Essential (primary) hypertension; E11.621 Type 2 diabetes mellitus with foot ulcer; Z79.84 Long term (current) use of oral hypoglycemic drugs; Z99.2 Dependence on renal dialysis; Z79.899 Other long term (current) drug therapy

== ENCOUNTER 2024-12-06 15:30 | Emergency (ER) | payer OTHER ==
[~2024-12-06] VITALS: Ht 165.1 cm; Wt 75.7 kg
[~2024-12-06 15:30] MED LIST changes: +AMOX-430 PO; +CIPR7.5D9 EACH EAR
[2024-12-06 16:40] LABS: CALCIUM, SERUM 6.5 mg/dL (8.5-10.1); SODIUM SERUM 141.0 mmol/L (136-145); UREA NITROGEN, BLOOD 73.0 mg/dL (7-18)
[2024-12-06 16:43] LABS: CREATININE 13.7 mg/dL (0.6-1.3)
[2024-12-06] MEDS ORDERED: SODIUM ZIRCONIUM CYCLOSILICATE 10 GM POWD.PACK ONE (17:04)
[2024-12-06] MEDS: SODIUM ZIRCONIUM CYCLOSILICATE 10 GM POWD.PACK PO ONE (17:06)
[2024-12-06] MEDS ORDERED: FUROSEMIDE 20 MG/2 ML VIAL ONE (17:09)
[2024-12-06] MEDS ORDERED: SODIUM BICARBONATE SYR 50 MEQ/50 ML DISP.SYRIN ONE ×2 (17:09→17:29)
[2024-12-06] MEDS ORDERED: CALCIUM CHLORIDE 1,000 MG/10 ML DISP.SYRIN ONE (17:09)
[2024-12-06] MEDS ORDERED: DEXTROSE 50%-WATER 50 ML DISP.SYRIN ONE ×3 (17:09→19:02)
[2024-12-06] MEDS ORDERED: INSULIN REGULAR, HUMAN 100 UNIT/ML 10 ML VIAL ONE (17:09)
[2024-12-06] MEDS: INSULIN REGULAR, HUMAN 100 UNIT/ML 10 ML VIAL IV ONE (17:21)
[2024-12-06] MEDS: SODIUM BICARBONATE SYR 50 MEQ/50 ML DISP.SYRIN IV ONE (17:25)
[2024-12-06] MEDS: CALCIUM CHLORIDE 1,000 MG/10 ML DISP.SYRIN IV ONE (17:25)
[2024-12-06] MEDS: FUROSEMIDE 40 MG/4 ML VIAL IV ONE (17:25)
[2024-12-06] MEDS: DEXTROSE 50%-WATER 50 ML DISP.SYRIN IV ONE ×3 (17:33→19:15)
[2024-12-06] MEDS ORDERED: SODI10PO PO (22:00)
[2024-12-06 23:23] VITALS: BP 173/94; TEMP 98.5; O2SAT 95
== END 2024-12-06 23:24 | disposition home or self-care (01) ==
LOC: ER 15:36
DX: E11.22 Type 2 diabetes mellitus with diabetic chronic kidney disease (principal); E11.621 Type 2 diabetes mellitus with foot ulcer; E87.5 Hyperkalemia; I12.0 Hypertensive chronic kidney disease with stage 5 chronic kidney disease or end stage renal disease; N18.6 End stage renal disease; Z79.84 Long term (current) use of oral hypoglycemic drugs; Z99.2 Dependence on renal dialysis
CPT/HCPCS: 99285; 96374; 96375; 93005; 96376; 80048; 36415; 82962 ×4; 84132; J3490 ×3; J1938; J1815